=== PATIENT | female | born 1950 | race Caucasian/White ===

== ENCOUNTER 2016-11-17 09:00 | Inpatient (IN) | payer BC ==
[~2016-11-17] VITALS: Ht 161.3 cm; Wt 116.3 kg
--- NOTE | ~2016-11-17 | OR ---
PATIENT'S NAME: [facility] AGE: 66 Y [address] ROOM: [place] [address] LOCATION: [facility] ADMIT DATE: 11/27/2016 OR/Procedure Report DISCHARGE DATE: FAMILY PHYSICIAN: Braulio Baer MD ATTENDING PHYSICIAN: KHADIJAH BOWER SURGEON: Khadijah Bower MD DOCUMENTATION CLERK: 1. [place] CST/CELL FEED DEPARTMENT SUPERVISOR. 2. Khadijah Hussein. DATE OF PROCEDURE: 11/27/2016 PRE-OP DIAGNOSES: 1. Degenerative joint disease right knee. 2. Obesity (5 feet and 3 inches tall and 116.8 kg). POST-OP DIAGNOSES: 1. Degenerative joint disease right knee. 2. Obesity (5 feet and 3 inches tall and 116.8 kg). OPERATION: Right total knee arthroplasty with computer navigation. ANESTHESIA: Spinal anesthesia plus adductor canal block plus subcutaneous and periarticular local anesthesia (ropivacaine with epinephrine and Toradol). ESTIMATED BLOOD LOSS: Less than 10 cubic centimeters. DRAIN: None. SPECIMEN: None. COMPLICATIONS: None. IMPLANT SYSTEM: [place]. 1. Size 4 right posterior stabilized femoral component. 2. Size 3 universal modular tibial baseplate. 3. 13 mm posterior stabilized size 3, X3, tibial polyethylene insert. 4. 29 mm oval X3 patella component. INDICATIONS FOR SURGERY: Mechelle Ledbetter is a 66-year-old female, who presents with advanced right knee degenerative joint disease and associated severely compromised activities of daily living. The patient has decided to proceed with knee replacement after having been thoroughly counseled regarding the associated risks, benefits, and limitations. We have specifically reviewed the risks and implications of infection, deep venous thrombosis, pulmonary embolism, mortality, neurovascular complications, blood transfusion (and associated potential for disease transmission or transfusion reaction), PATIENT'S NAME: M[facility]LE [facility] AGE: 66 Y [address] ROOM: [place] [address] LOCATION: [facility] ADMIT DATE: 11/27/2016 OR/Procedure Report DISCHARGE DATE: FAMILY PHYSICIAN: Braulio Baer MD ATTENDING PHYSICIAN: KHADIJAH BOWER stiffness, instability, mechanical deterioration of the components (due to wear and or loosening), and the potential need for revision. We have also emphasized the importance of active involvement and compliance with post- operative physical therapy as a means of optimizing range of motion and functional recovery. Informed consent has been granted. DESCRIPTION OF PROCEDURE: The patient was positioned supine after administration of anesthesia and prophylactic antibiotics. A well-padded pneumatic tourniquet was placed around the right proximal thigh, and the right lower extremity was prepped and draped with vigilant sterile technique. The patient's name as well as the intended operative side and procedure were confirmed with a verbal time-out involving myself, the circulating nurse, the scrub nurse, and the anesthesiologist. Examination under anesthesia demonstrated no active skin lesions or masses. There was a moderate effusion. There was no erythema. There was no abnormal warmth. There was a very large soft tissue envelope surrounding the thigh and anterior aspect of the knee. There was no erythema. There was no abnormal warmth. Range of motion under anesthesia was from a 5-degree flexion contracture to 120 degrees of flexion. There was no ligamentous insufficiency. The right lower extremity was elevated and exsanguinated with an Esmarch wrap, and the pneumatic tourniquet was inflated to 300mmHg. The knee was approached through a longitudinal midline incision. A medial parapatellar arthrotomy was performed and the patella was everted. Examination of the joint space demonstrated a moderate amount of benign-appearing translucent synovial fluid. There was generalized non-proliferative synovitis. There was a 1 cm osseous loose body at the anterolateral aspect of the intercondylar notch. There were moderate-sized osteophytes at the intercondylar notch. Cruciate ligaments were intact. There was full-thickness loss of articular cartilage involving 80% of the medial femoral condyle and 60% of the medial tibial plateau. There were large osteophytes at the inferior aspect of the patella, medial femoral condyle, and medial tibial plateau. There was a 1 cm diameter region of full- thickness articular cartilage loss at the central aspect of the femoral trochlea and a separate 1 cm region of full-thickness articular cartilage loss at the medial aspect of the femoral trochlea. There was high-grade partial- thickness articular cartilage loss involving the apex of the patella and the majority of the medial facet of the patella. There were small osteophytes at the superior and medial aspects of the patella in addition to a large osteophyte at the inferior aspect of the patella. There was a small osteophyte at the lateral femoral condyle. There were moderate grade 3 degenerative changes and full thickness fissuring involving the medial one- half of the lateral tibial plateau. There was extensive complex degenerative PATIENT'S NAME: [facility] AGE: 66 Y [address] ROOM: [place] [address] LOCATION: [facility] ADMIT DATE: 11/27/2016 OR/Procedure Report DISCHARGE DATE: FAMILY PHYSICIAN: Braulio Baer MD ATTENDING PHYSICIAN: KHADIJAH BOWER tearing involving the middle one-third of the medial meniscus. There was mild inner perimeter tearing of the lateral meniscus. Remnants of the menisci and cruciate ligaments were excised. The [employer] computer navigation femoral tracker was pinned in place at the distal aspect of the femoral trochlea. Absence of motion between the femur and the tracking device was confirmed manually and visually. Femoral osseous landmarks were obtained in order to calibrate the computer navigation system. Landmarks included the center of rotation of the ipsilateral hip, the center-point of the distal femur, the femoral AP axis, 57 points on the medial femoral condyle articular surface, and 57 points on the lateral femoral condyle articular surface. The [employer] computer navigation system was subsequently utilized to position the distal femoral resection block such that the distal femoral resection was performed perfectly perpendicular to the femoral mechanical axis. The distal femoral resection was performed with a ShelfFlip oscillating saw. The [employer] computer navigation tibial tracker was pinned in place at the anterior aspect of the tibial plateau. Absence of motion between the tibia and the tracking device was confirmed manually and visually. Tibial osseous landmarks were obtained in order to calibrate the computer navigation system. Landmarks included the center-point of the tibial plateau, the AP tibial axis, 57 points on the medial tibial plateau articular surface, 57 points on the lateral tibial plateau articular surface, the medial malleolus, and the lateral malleolus. The [employer] computer navigation system was subsequently utilized to position the proximal tibial resection block such that the proximal tibial resection was performed perfectly perpendicular to the tibial mechanical axis. The proximal tibial resection was performed with a [employer]ision oscillating saw. Perpendicularity of the tibial resection with respect to the tibial shaft axis was reconfirmed by inserting a spacer- block attached to an extramedullary guide marquita. External rotation of the anterior and posterior femoral resections was set parallel to the epicondylar axis and carefully adjusted in order to create a rectangular flexion gap. The box resection was performed with a reciprocating saw. Anterior and posterior chamfer resections were performed with the oscillating saw. Posterior condyle osteophytes were excised with an osteotome. All other osteophytes were excised with a rongeur. Resection of all remnants of the menisci was reconfirmed. Flexion and extension gaps were confirmed to be symmetric and well balanced with a spacer-block technique. The patella resection was performed with an oscillating saw such that the composite thickness of the reconstructed patella was equivalent to the thickness of the [place] patella. Patella tracking was optimal and there was no need for a lateral retinacular release. PATIENT'S NAME: [facility]LE [facility] AGE: 66 Y [address] ROOM: [place] [address] LOCATION: [facility] ADMIT DATE: 11/27/2016 OR/Procedure Report DISCHARGE DATE: FAMILY PHYSICIAN: Braulio Baer MD ATTENDING PHYSICIAN: KHADIJAH BOWER All trial components were removed and all prepared osseous surfaces were thoroughly irrigated with pulsatile saline lavage and dried prior to cementing all three components in a single stage using [employer] Simplex cement containing pre-mixed tobramycin. All extruded excess cement was removed. The entire joint space was thoroughly inspected and thoroughly irrigated with bacteriostatic pulsatile saline lavage to assure that there was no residual debris of any sort. Final range of motion was from full extension (with no passive hyperextension) to 130 degrees of flexion. Patella tracking was reconfirmed to be optimal. There was excellent anteroposterior stability at 90 degrees of flexion. There was a less than 1 mm of medial lift-off to valgus stress in full extension. There was less than 1 mm of lateral lift-off to varus stress in full extension. The arthrotomy was closed with multiple simple and [id number] interrupted #1 Vicryl. Subcutaneous tissues were thoroughly re-irrigated with bacteriostatic pulsatile saline lavage. Subcutaneous tissues were re- approximated with simple buried interrupted #0 Vicryl sutures. The skin was closed with simple buried interrupted 2-0 Vicryl sutures followed by surgical dulce. The dressing consisted of Xeroform gauze, 4x4 gauze, ABD pads and two 6-inch Gino Wraps. There were no intra-operative complications. MD BROOKS SHEETS/hollie /[id number] d: 11/27/162153 t: 12/14/162033, OPERATIVE SUMMARY
--- NOTE | ~2016-11-17 | PUL ---
PATIENT'S NAME: MECHELLE BUTLER [facility] AGE: 66 Y [address] ROOM: [facility] [place], [place] [address] LOCATION: [facility] ADMIT DATE: 11/27/2016 Pulmonary DISCHARGE DATE: 11/29/2016 FAMILY PHYSICIAN: Braulio Baer MD ATTENDING PHYSICIAN: Cristian Hansen NAME OF PROCEDURE: Overnight Pulse Oximetry DATE OF PROCEDURE: November 28 to November 29, 2016 REASON FOR EXAM: Nocturnal hypoxemia RESULTS: The test was performed on room air. The recording time was 9 hours, 20 minutes, and 36 seconds, with a total valid sampling time of 9 hours, 18 minutes, and 56 seconds. The highest pulse was 93, lowest pulse was 37, with a mean pulse of 55. The highest SpO2 was 97%, lowest SpO2 was 67%, with a mean SpO2 of 87%. The patient spent 6 hours, 51 minutes, and 40 seconds with SpO2 less than 89%, representing 73.7% of the total sleep time. The desaturation event index was significantly elevated 21.9. PHYSICIAN INTERPRETATION: The patient has evidence of significant nocturnal hypoxia and would qualify for supplemental oxygen as per Medicare criteria. However because of the severity of her nocturnal hypoxia with elevated desaturation event index a sleep study is recommended at this time. MD SHUBHAM JONES/margareth /[id number] dtt: 12/01/16 0941 , SARA OSORIO dtd: 12/01/16 0631
--- NOTE | ~2016-11-17 | DS ---
PATIENT'S NAME: MECHELLE BUTLER [facility] AGE: 66 Y [address] ROOM: [place] [address] LOCATION: [facility] ADMIT DATE: 11/27/2016 Discharge Summary DISCHARGE DATE: 11/29/2016 FAMILY PHYSICIAN: Braulio Baer MD ATTENDING PHYSICIAN: Khadijah Bower PRIMARY DIAGNOSIS: Degenerative joint disease of the right knee. SECONDARY DIAGNOSES: Include, 1. Sleep disorder, insomnia. 2. Hyperlipidemia. 3. Obesity, BMI of 44. PROCEDURE PERFORMED: Right total knee arthroplasty with computer navigation. HISTORY: The patient is a 66-year-old female, who presents with advanced right knee degenerative joint disease and associated severely compromised activities of daily living. The patient has decided to proceed with total knee arthroplasty after having been thoroughly counseled regarding the risks, benefits, limitations, and alternatives. Please refer to the outpatient clinic notes and admission history and physical for this patient. HOSPITAL COURSE: The patient underwent a right total knee arthroplasty on 11/27/2016 without complications. Spinal anesthesia plus adductor canal block plus subcutaneous and periarticular local anesthesia was utilized. The patient received 24 hours of perioperative prophylactic antibiotics and remained hemodynamically stable, neurovascularly intact throughout the entire hospital course. The postoperative prophylactic deep venous thrombosis prophylaxis consisted of Xarelto 10 mg, early mobilization and pneumatic compression devices. Daily physical therapy for gait training, transfer training range of motion and quadriceps isometric exercises were received. The patient progressed well in physical therapy. On the date of discharge, 11/29/2016, the incision at the knee was healing well and showed no signs of infection. DISPOSITION: Home. DISCHARGE ACTIVITY: The patient is to bear weight as tolerated with range of motion and quadriceps isometric exercises as instructed. The operative extremity is to be elevated at least 90% of the day. There is to be sterile 4x4 gauze dressings to the incision daily. Dr. Bower is to be notified immediately if there is any increased pain, fevers, chills, erythema, or drainage. DISCHARGE MEDICATIONS: Include, PATIENT'S NAME: MECHELLE BUTLER [facility] AGE: 66 Y [address] ROOM: [place] [address] LOCATION: N ADMIT DATE: 11/27/2016 Discharge Summary DISCHARGE DATE: 11/29/2016 FAMILY PHYSICIAN: Braulio Baer MD ATTENDING PHYSICIAN: Khadijah Bower 1. Xarelto 10 mg, take 1 tablet p.o. daily for DVT prevention. 2. Dilaudid 2 mg, take 1 to 2 tablets p.o. every 4 hours as needed for pain. FOLLOWUP: Followup date is scheduled for December 04, 2016, for initial postoperative evaluation and x-rays at that time. SEAMUS MALDONADO FOR KHADIJAH BOWER MD TLB/modl /[id number] d: 12/06/16 0900 t: 12/18/16 0810, DISCHARGE SUMMARY
[~2016-11-17 09:00] MED LIST: CELEBREX200 MG PO; COLACE100 MG PO; CPAP INH; CRESTOR10 MG PO; DESYREL50 MG PO; DILAUDID 2MG(HYD2 MG PO; MIRALAX17 GM PO; TRIAMCINOLONE 015 G1 TOP; TYLENOL EXTRA500 MG PO; VALIUM5 MG PO; XARELTO10 MG PO
[2016-11-17] MEDS ORDERED: AMOXICILLIN500 MG PO (09:39)
[2016-11-29] MEDS ORDERED: COLACE100 MG PO (11:05)
[2016-11-29] MEDS ORDERED: MYCOLOG OINTMEN15 GM TOP (11:07)
[2016-11-29] MEDS ORDERED: MIRALAX17 GM PO (11:09)
[2016-11-29] MEDS ORDERED: XARELTO10 MG PO (11:10)
[2016-11-29] MEDS ORDERED: DILAUDID 2MG(HYD2 MG PO (11:11)
[2016-11-29] MEDS ORDERED: CELEBREX200 MG PO (11:11)
== END 2016-11-29 18:44 | disposition disaster alternative care site (69) | DRG 470 ==
LOC: G3N 11-27 05:36
PROVIDERS: ADMIT Orthopaedic Surgery
PROC: 0SRC0J9 Replacement of Right Knee Joint with Synthetic Substitute, Cemented, Open Approach (ICD-10-PCS; principal; 2016-11-27)
DX: M17.11 Unilateral primary osteoarthritis, right knee (principal); Z68.41 Body mass index [BMI] 40.0-44.9, adult; G47.30 Sleep apnea, unspecified; K57.90 Diverticulosis of intestine, part unspecified, without perforation or abscess without bleeding; L43.9 Lichen planus, unspecified; I51.7 Cardiomegaly; E66.9 Obesity, unspecified; Z87.11 Personal history of peptic ulcer disease; Z90.710 Acquired absence of both cervix and uterus; Z96.652 Presence of left artificial knee joint
CPT/HCPCS: C1713; C1776; J0690; J1100; J1885; J2250; J2405; J2795; J7120